=== PATIENT | female | born 1930 | race Caucasian/White ===

== ENCOUNTER 2019-05-21 17:22 | Observation (INO) | payer MEDICARE ==
--- NOTE | 2019-05-21 17:33 | ERPHSYRPT ---
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 Severity: mild Character of Deficits: new weakness, altered sensation, unable to speak Baseline/Normal Cognition: alert oriented x 3 Current Cognition: alert oriented x 3 Baseline Gait: walks w/o assistance Associated Symptoms: numbness/tingling in legs/feet, paresthesia (bilat hands), trouble walking, other (could not speak) Allergies/Adverse Reactions: codeine Allergy (Verified 05/21/19 17:50) Penicillins Allergy (Verified 05/21/19 17:50) Home Medications: Glimepiride 4 mg [Amaryl 4 mg] 4 mg PO BID 05/21/19 [History] Insulin Lispro Protamin/Lispro [Humalog Mix 75-25 Vial] 0 unit SQ BID 05/21/19 [ History] Losartan Potassium [Cozaar] 100 mg PO DAILY 05/21/19 [History] Metformin HCl Xr 500 mg [Glucophage XR 500 MG] 500 mg PO DAILY 05/21/19 [ History] Omeprazole 40 mg PO DAILY 05/21/19 [History] - Review of Systems Constitutional: No Symptoms Eyes: No Symptoms Ears, Nose, & Throat: No Symptoms Respiratory: No Symptoms Cardiac: No Symptoms Abdominal/Gastrointestinal: No Symptoms Genitourinary Symptoms: No Symptoms Musculoskeletal: No Symptoms Skin: No Symptoms Neurological: No Symptoms Psychological: No Symptoms Endocrine: No Symptoms Hematologic/Lymphatic: No Symptoms Immunological/Allergic: No Symptoms All Other Systems: Reviewed and Negative - Past Medical History Pertinent Past Medical History: Yes Cardiac History: No Pertinent History - Past Surgical History Past Surgical History: Yes - Nursing Vital Signs Nursing Vital Signs: Initial Vital Signs Temperature 98.0 F 05/21/19 17:29 Pulse Rate 86 05/21/19 17:29 Blood Pressure 231/83 05/21/19 17:29 O2 Sat by Pulse Oximetry 97 05/21/19 17:29 Pain Scale Pain Intensity 0 - [place] Coma Scale Best Eye Response ([place]): (4) open spontaneously Best Verbal Response ([place]): (5) oriented Best Motor Response ([place]): (6) obeys commands [place] Total: 15 - Physical Exam General Appearance: alert, anxiety Eye Exam: bilateral eye: normal inspection, PERRL, EOMI Ears, Nose, Throat Exam: normal ENT inspection, moist mucous membranes Neck Exam: normal inspection, non-tender, supple, full range of motion Respiratory: normal breath sounds, lungs clear, airway intact, No chest tenderness, No respiratory distress Cardiovascular: regular rate/rhythm, normal heart sounds, normal peripheral pulses Gastrointestinal: soft, normal bowel sounds, No tenderness Pelvic Exam: not done Rectal Exam: not done Back Exam: normal inspection, normal range of motion, No CVA tenderness, No vertebral tenderness Extremity Exam: normal inspection, normal range of motion, pelvis stable Mental Status: alert, oriented x 3, 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 Exam: normal hearing, normal speech, PERRL, tongue midline Coordination/Gait: normal finger to nose, normal gait, normal cerebellar function Motor/Sensory: no motor deficit, no sensory deficit Skin Exam: normal color, warm, dry SpO2 Interpretation: normal O2 Delivery: Room Air - Course Nursing assessment & vital signs reviewed: Yes EKG Interpreted by Me: RATE (85), Sinus Rhythm, Right Rombauer Deviation, 1st degree AV Block, Right Bundle Branch Block, Other (qrs sig prolonged) Ordered Tests: Active Orders 24 hr Category Date Time Status 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 STAT Care 05/21/19 18:05 Active EKG-ER Only STAT Care 05/21/19 18:04 Active IV Insertion STAT Care 05/21/19 18:04 Active NPO (ED) STAT Care 05/21/19 18:04 Active Pulse Oximetry (ED) STAT Care 05/21/19 18:04 Active HEAD WITHOUT CONTRAST [CT] Stat Exams 05/21/19 18:04 Taken CBC W DIFF Stat Lab 05/21/19 17:30 Completed CMP Stat Lab 05/21/19 17:30 Completed PROTIME WITH INR Stat Lab 05/21/19 17:30 Completed UA W/RFX UR CULTURE Stat Lab 05/21/19 19:05 Completed Transfer Order Routine Transfer 05/21/19 Ordered Medication Summary Generic Name Dose Route Start Last Admin Trade Name Freq PRN Reason Stop Dose Admin Sodium Chloride 1,000 mls @ 100 mls/hr 05/21/19 18:15 05/21/19 18:23 Sodium Chloride 0.9% 1000 Ml IV 06/20/19 18:14 100 mls/hr .Q10H [place] Administration Discontinued Medications Generic Name Dose Route Start Last Admin Trade Name Felicity PRN Reason Stop Dose Admin Ciprofloxacin 500 mg 05/21/19 19:26 05/21/19 19:31 Cipro 500 Mg PO 05/21/19 19:27 500 mg STAT ONE Administration Ciprofloxacin Confirm 05/21/19 19:31 Cipro 500 Mg Administered 05/21/19 19:32 Dose 500 mg .ROUTE .STK-MED ONE Enalaprilat 1.25 mg 05/21/19 19:48 05/21/19 20:55 Vasotec I.V. 2.5 Mg IV 05/21/19 19:49 0.625 mg STAT ONE Administration Enalaprilat Confirm 05/21/19 19:59 Vasotec I.V. 2.5 Mg Administered 05/21/19 20:00 Dose 2.5 mg IV .STK-MED ONE Hydralazine HCl 5 mg 05/21/19 18:02 05/21/19 18:08 Apresoline 20 Mg/Ml Inj IV 05/21/19 18:03 5 mg STAT ONE Administration Hydralazine HCl Confirm 05/21/19 18:07 Apresoline 20 Mg/Ml Inj Administered 05/21/19 18:08 Dose 20 mg .ROUTE .STK-MED ONE Hydralazine HCl 5 mg 05/21/19 18:40 05/21/19 18:42 Apresoline 20 Mg/Ml Inj IV 05/21/19 18:41 5 mg STAT ONE Administration Metoprolol Tartrate 5 mg 05/21/19 19:11 05/21/19 19:31 Lopressor 5 Mg/5 Ml Injection IV 05/21/19 19:12 5 mg STAT ONE Administration Metoprolol Tartrate Confirm 05/21/19 19:19 Lopressor 5 Mg/5 Ml Injection Administered 05/21/19 19:20 Dose 5 mg IV .STK-MED ONE Lab/Rad Data: Laboratory Result Diagrams 05/21/19 17:30 05/21/19 17:30 Laboratory Results 05/21/19 05/21/19 05/21/19 Range/Units 19:05 17:30 17:30 WBC (4.0-10.5) K/mm3 RBC (4.1-5.4) M/mm3 Hgb (12.0-16.0) gm/dl Hct (35-47) % MCV (78-100) fl MCH (26-32) pg MCHC (32-36) g/dl RDW (11.5-14.0) % Plt Count (150-450) K/mm3 MPV (7.5-11.0) fl Gran % (36.0-66.0) % Eos # (Auto) (0-0.5) Absolute Lymphs (auto) (1.0-4.6) Absolute Monos (auto) (0.0-1.3) Lymphocytes % (24.0-44.0) % Monocytes % (0.0-12.0) % Eosinophils % (0.00-5.0) % Basophils % (0.0-0.4) % Absolute Granulocytes (1.4-6.9) Basophils # (0-0.4) PT 11.9 (9.95-12.35) SECONDS INR 1.05 (0.8-3.0) Sodium 137 (137-145) mmol/L Potassium 4.8 (3.5-5.1) mmol/L Chloride 102 (98-107) mmol/L Carbon Dioxide 24 (22-30) mmol/L Anion Gap 16.4 H (5-15) MEQ/L BUN 24 H (7-17) mg/dL Creatinine 1.14 H (0.52-1.04) mg/dL Estimated GFR 47.7 ML/MIN Glucose 154 H (74-106) mg/dL Calcium 10.4 H (8.4-10.2) mg/dL Total Bilirubin 0.50 (0.2-1.3) mg/dL AST 30 (14-36) U/L ALT 29 (0-35) U/L Alkaline Phosphatase 53 (38-126) U/L Serum Total Protein 8.1 (6.3-8.2) g/dL Albumin 4.4 (3.5-5.0) g/dL Urine Color YELLOW (YELLOW) Urine Appearance SLIGHTLY CLOUDY (CLEAR) Urine pH 6.0 (5-6) Ur Specific [place] 1.005 (1.005-1.025) Urine Protein NEGATIVE (Negative) Urine Ketones NEGATIVE (NEGATIVE) Urine Blood NEGATIVE (0-5) Juliano/ul Urine Nitrite NEGATIVE (NEGATIVE) Urine Bilirubin NEGATIVE (NEGATIVE) Urine Urobilinogen NEGATIVE (0-1) mg/dL Ur Leukocyte Esterase TRACE (NEGATIVE) Urine WBC (Auto) 3-5 (0-5) /HPF Urine RBC (Auto) NONE (0-2) /HPF U Epithel Cells (Auto) NONE (FEW) /HPF Urine Bacteria (Auto) NONE (NEGATIVE) /HPF Urine Mucus (Auto) SLIGHT (NEGATIVE) /HPF Urine Culture Reflexed NO (NO) Urine Glucose NEGATIVE (NEGATIVE) mg/dL 05/21/19 Range/Units 17:30 WBC 8.1 (4.0-10.5) K/mm3 RBC 4.29 (4.1-5.4) M/mm3 Hgb 13.5 (12.0-16.0) gm/dl Hct 41.5 (35-47) % MCV 96.7 (78-100) fl MCH 31.5 (26-32) pg MCHC 32.5 (32-36) g/dl RDW 14.7 H (11.5-14.0) % Plt Count 238 (150-450) K/mm3 MPV 11.1 H (7.5-11.0) fl Gran % 57.1 (36.0-66.0) % Eos # (Auto) 0.26 (0-0.5) Absolute Lymphs (auto) 2.35 (1.0-4.6) Absolute Monos (auto) 0.86 (0.0-1.3) Lymphocytes % 28.9 (24.0-44.0) % Monocytes % 10.6 (0.0-12.0) % Eosinophils % 3.2 (0.00-5.0) % Basophils % 0.2 (0.0-0.4) % Absolute Granulocytes 4.65 (1.4-6.9) Basophils # 0.02 (0-0.4) PT (9.95-12.35) SECONDS INR (0.8-3.0) Sodium (137-145) mmol/L Potassium (3.5-5.1) mmol/L Chloride (98-107) mmol/L Carbon Dioxide (22-30) mmol/L Anion Gap (5-15) MEQ/L BUN (7-17) mg/dL Creatinine (0.52-1.04) mg/dL Estimated GFR ML/MIN Glucose (74-106) mg/dL Calcium (8.4-10.2) mg/dL Total Bilirubin (0.2-1.3) mg/dL AST (14-36) U/L ALT (0-35) U/L Alkaline Phosphatase (38-126) U/L Serum Total Protein (6.3-8.2) g/dL Albumin (3.5-5.0) g/dL Urine Color (YELLOW) Urine Appearance (CLEAR) Urine pH (5-6) Ur Specific [place] (1.005-1.025) Urine Protein (Negative) Urine Ketones (NEGATIVE) Urine Blood (0-5) Juliano/ul Urine Nitrite (NEGATIVE) Urine Bilirubin (NEGATIVE) Urine Urobilinogen (0-1) mg/dL Ur Leukocyte Esterase (NEGATIVE) Urine WBC (Auto) (0-5) /HPF Urine RBC (Auto) (0-2) /HPF U Epithel Cells (Auto) (FEW) /HPF Urine Bacteria (Auto) (NEGATIVE) /HPF Urine Mucus (Auto) (NEGATIVE) /HPF Urine Culture Reflexed (NO) Urine Glucose (NEGATIVE) mg/dL - Progress Progress: improved Progress Note: 05/21/19 19:10 ct head-senile brain. no acute intracranial abnormality 05/21/19 21:[address] mosqueda. i reviewed pts hx, labs, ekg, xray results. he accepts pt for admission Counseled pt/family regarding: lab results, diagnosis, need for follow-up, rad results - Departure Departure Disposition: In-patient Admission Clinical Impression: UTI (urinary tract infection), Hypertensive crisis Condition: Stable Critical Care Time: Yes Critical Care Time(excluding separately billable procedures): Critical 75-104 mins Referrals: JEAN PAUL BOLANOS [Primary Care Provider] - Additional Instructions: take your medications as prescribed. follow up with primary doctor tomorrow for further management Prescriptions: Ciprofloxacin [Cipro 500 MG] 500 mg PO BID #14 tablet
[2019-05-21] MEDS ORDERED: APRESOLINE 20 MG/ML INJ IV ONE ×2 (18:02→18:40)
[2019-05-21] MEDS ORDERED: APRESOLINE 20 MG/ML INJ ONE (18:07)
[2019-05-21 18:12] LABS: Absolute Neutrophil Ct (ANC) 4.65 (1.4-6.9); BASOPHIL % 0.2 % (0.0-0.4); Basophil (Absolute #) 0.02 (0-0.4); Eosinophil % 3.2 % (0.00-5.0); Eosinophil (Absolute #) 0.26 (0-0.5); Hematocrit 41.5 % (35-47); Hemoglobin 13.5 gm/dl (12.0-16.0); Lymphocyte (Absolute #) 2.35 (1.0-4.6); Lymphocytes % 28.9 % (24.0-44.0); Mean Cell Volume 96.7 fl (78-100); Mean Corpuscular Hemoglobin 31.5 pg (26-32); Mean Corpuscular Hgb Concent. 32.5 g/dl (32-36); Mean Platelet Volume 11.1 fl (7.5-11.0); Monocyte (Absolute #) 0.86 (0.0-1.3); Monocytes % 10.6 % (0.0-12.0); Neutrophil % 57.1 % (36.0-66.0); Platelet Count 238 K/mm3 (150-450); Red Blood Count 4.29 M/mm3 (4.1-5.4); Red Cell Distribution Width 14.7 % (11.5-14.0); White Blood Count 8.1 K/mm3 (4.0-10.5)
[2019-05-21 18:14] LABS: INR 1.05 (0.8-3.0); PROTIME 11.9 SECONDS (9.95-12.35)
[2019-05-21] MEDS ORDERED: Sodium Chloride 0.9% 1000 ML 1,000 ML IV SCH (18:15)
[2019-05-21 18:17] LABS: ALBUMIN 4.4 g/dL (3.5-5.0); ANION GAP 16.4 MEQ/L (5-15); BILIRUBIN,TOTAL 0.5 mg/dL (0.2-1.3); Calcium 10.4 mg/dL (8.4-10.2); Creatinine 1 1.14 mg/dL (0.52-1.04); Potassium 4.8 mmol/L (3.5-5.1); Total Protein 8.1 g/dL (6.3-8.2)
[2019-05-21] MEDS ORDERED: LOPRESSOR 5 MG/5 ML INJECTION IV ONE ×2 (19:11→19:19)
[2019-05-21 19:12] LABS: Appearance SLIGHTLY CLOUDY (CLEAR); Bilirubin NEGATIVE (NEGATIVE); Blood NEGATIVE Ery/ul (0-5); Glucose NEGATIVE (NEGATIVE); Ketones NEGATIVE (NEGATIVE); Leukocyte Esterase TRACE (NEGATIVE); Mucus SLIGHT /HPF (NEGATIVE); Nitrite NEGATIVE (NEGATIVE); Protein,Urine Dip NEGATIVE (Negative); Specific Gravity 1.005 (1.005-1.025); Urobilinogen NEGATIVE mg/dL (0-1)
[2019-05-21] MEDS ORDERED: Cipro 500 MG PO ONE (19:26)
[2019-05-21] MEDS ORDERED: Cipro 500 MG ONE (19:31)
[2019-05-21] MEDS ORDERED: VASOTEC I.V. 2.5 MG IV ONE (19:59)
[2019-05-21] MEDS: VASOTEC I.V. 2.5 MG IV ONE ×2 (20:10→20:55)
[2019-05-21] MEDS ORDERED: TYLENOL 325 MG PO PRN (22:11)
[2019-05-21] MEDS ORDERED: TRANDATE 100 MG/20 ML MDV FOR DRIP IV PRN (22:11)
[2019-05-21] MEDS ORDERED: Levofloxacin 500 MG Tablet PO ONE (22:11)
[2019-05-21] MEDS ORDERED: Zofran 4 MG/2 ML VIAL IV PRN (22:11)
[2019-05-21] MEDS ORDERED: Tessalon Perles 100 MG PO ONE (23:01)
[2019-05-21] MEDS ORDERED: solu-MEDROL 125 MG ONE (23:01)
[2019-05-22 05:26] LABS: Absolute Neutrophil Ct (ANC) 4.43 (1.4-6.9); BASOPHIL % 0.3 % (0.0-0.4); Basophil (Absolute #) 0.02 (0-0.4); Eosinophil % 2.9 % (0.00-5.0); Eosinophil (Absolute #) 0.23 (0-0.5); Hematocrit 40.4 % (35-47); Lymphocyte (Absolute #) 2.35 (1.0-4.6); Lymphocytes % 29.8 % (24.0-44.0); Mean Cell Volume 95.7 fl (78-100); Mean Corpuscular Hemoglobin 30.8 pg (26-32); Mean Corpuscular Hgb Concent. 32.2 g/dl (32-36); Mean Platelet Volume 11.3 fl (7.5-11.0); Monocyte (Absolute #) 0.86 (0.0-1.3); Monocytes % 10.9 % (0.0-12.0); Neutrophil % 56.1 % (36.0-66.0); Platelet Count 226 K/mm3 (150-450); Red Blood Count 4.22 M/mm3 (4.1-5.4); Red Cell Distribution Width 14.8 % (11.5-14.0); White Blood Count 7.9 K/mm3 (4.0-10.5)
[2019-05-22 05:41] LABS: ALBUMIN 3.8 g/dL (3.5-5.0); ANION GAP 11.6 MEQ/L (5-15); BILIRUBIN,TOTAL 0.4 mg/dL (0.2-1.3); Calcium 9.8 mg/dL (8.4-10.2); Creatinine 1 1.01 mg/dL (0.52-1.04); Potassium 4.5 mmol/L (3.5-5.1)
--- NOTE | 2019-05-22 08:34 | XRAY ---
Indication: Headache, confusion, and difficulty speaking. Multiple contiguous axial images obtained through the head without contrast. Comparison: None Age-appropriate global atrophy and mild periventricular degenerative micro-ischemia bilaterally. No acute intracranial hemorrhage, abnormal extra-axial fluid collection, or mass effect. Fourth ventricle is midline without hydrocephalus. Bony calvarium intact. Visualized paranasal sinuses and mastoid air cells are clear. Impression: Nonacute senile brain.
[2019-05-22] MEDS: TRANDATE 100MG/20 ML MDV IV PRN ×3 (09:06→20:14)
[2019-05-22] MEDS: NovoLOG Insulin SQ PRN ×2 (09:07→12:29)
--- NOTE | 2019-05-22 14:11 | PCM.HP ---
History of Present Illness - Chief Complaint Chief Complaint: weakness and elevated blood pressure for 2-3 days History of Present Illness: is a 89 year old female came to ER with c/o weakness and elevated blood pressure for 2-3 days c - Review of Systems Constitutional: No Fever, No Chills Eyes: No Symptoms Ears, Nose, & Throat: No Symptoms Respiratory: No Cough, No Short Of Breath Cardiac: No Chest Pain, No Edema, No Syncope Abdominal/Gastrointestinal: No Abdominal Pain, No Nausea, No Vomiting, No Diarrhea Genitourinary Symptoms: No Dysuria Musculoskeletal: No Back Pain, No Neck Pain Skin: No Rash Neurological: No Dizziness, No Focal Weakness, No Sensory Changes Psychological: No Symptoms Endocrine: No Symptoms Hematologic/Lymphatic: No Symptoms Immunological/Allergic: No Symptoms Medications & Allergies Home Medications: Home Medication List Ascorbic Acid 500 mg [Vitamin C 500 MG] 500 mg PO DAILY 05/21/19 [History Confirmed 05/21/19] B2/Vits A,C,E/Lut/Zeaxanth/Min [Icaps Tablet] 1 each PO DAILY 05/21/19 [History Confirmed 05/21/19] Ferrous Sulfate [Iron] 325 mg PO DAILY 05/21/19 [History Confirmed 05/21/19] Glimepiride 4 mg [Amaryl 4 mg] 4 mg PO QHS 05/21/19 [History Confirmed ] Insulin Lispro Protamin/Lispro [Humalog Mix 75-25 Vial] 0 unit SQ BID 05/21/19 [ History Confirmed 05/21/19] Losartan Potassium [Cozaar] 100 mg PO DAILY 05/21/19 [History Confirmed 05/21/19 ] Metformin HCl Xr 500 mg [Glucophage XR 500 MG] 500 mg PO DAILY 05/21/19 [ History Confirmed 05/21/19] Omeprazole 40 mg PO HS 05/21/19 [History Confirmed 05/21/19] Vitamin B Complex/Minerals [Stress B with Zinc Tablet] 1 each PO DAILY 05/21/19 [History Confirmed 05/21/19] Metoprolol Tartrate 50 mg [Lopressor 50 MG] 50 mg PO BID #60 tablet [Rx] Allergies/Adverse Reactions: Allergies Allergy/AdvReac Type Severity Reaction Status Date / Time codeine Allergy Verified 05/21/19 17:50 Penicillins Allergy Verified 05/21/19 17:50 - Past Medical History Past Medical History: Yes Neurological History: TIA ENT History: Other Cardiac History: No Pertinent History Respiratory History: No Pertinent History Endocrine Medical History: Diabetes Type II Musculoskelatal History: No Pertinent History GI Medical History: GERD History: No Pertinent History Pyscho-Social History: No Pertinent History Reproductive Disorders: No Pertinent History Comment: Diabetic retinopathy - Female History Are you now?: No - Past Surgical History Past Surgical History: Yes Neuro Surgical History: No Pertinent History Cardiac History: No Pertinent History Respiratory Surgery: No Pertinent History GI Surgical History: Appendectomy Genitourinary Surgical Hx: No Pertinent History Musculskeletal Surgical Hx: No Pertinent History Female Surgical History: No Pertinent History - Social History Smoking Status: Never smoker Exposure to second hand smoke: No Alcohol: None Drug Use: none - Physical Exam Vital Signs: Vital Signs - 24 hr Temp Pulse Resp BP BP Pulse Ox 05/22/19 12:35 98.5 F 78 18 149/56 97 05/22/19 11:00 98.0 F 81 18 183/65 178/93 97 05/22/19 09:00 98.0 F 81 18 183/65 97 05/22/19 08:00 79 05/22/19 07:08 96 05/22/19 07:00 98.1 F 81 18 183/65 97 05/22/19 05:42 98.3 F 83 18 173/72 97 05/22/19 04:00 82 05/22/19 03:31 98.3 F 83 18 167/72 178/93 99 05/22/19 02:00 97.9 F 88 18 164/70 96 05/22/19 00:21 86 158/83 05/21/19 23:54 97.8 F 88 15 181/98 05/21/19 22:19 97.8 F 88 15 189/94 05/21/19 21:30 88 16 178/93 96 05/21/19 21:07 88 16 190/83 95 05/21/19 20:08 84 16 189/84 98 05/21/19 19:57 81 18 205/84 97 05/21/19 19:18 98 H 18 208/84 97 05/21/19 18:08 96 05/21/19 18:00 84 195/127 97 05/21/19 17:29 98.0 F 86 231/83 97 General Appearance: no apparent distress, alert Neurologic Exam: alert, oriented x 3, cooperative, normal mood/affect, nml cerebellar function, nml station & gait, sensation nml, No motor deficits Eye Exam: PERRL/EOMI, eyes nml inspection Ears, Nose, Throat Exam: normal ENT inspection, TMs normal, pharynx normal, moist mucous membranes Neck Exam: normal inspection, non-tender, supple, full range of motion Respiratory Exam: normal breath sounds, lungs clear, No respiratory distress Cardiovascular Exam: regular rate/rhythm, normal heart sounds, normal peripheral pulses Gastrointestinal/Abdomen Exam: soft, normal bowel sounds, No tenderness, No mass Back Exam: normal inspection, normal range of motion, No CVA tenderness, No vertebral tenderness Extremity Exam: normal inspection, normal range of motion, pelvis stable Skin Exam: normal color, warm, dry, No rash Lymphatic Exam: No adenopathy Results - Labs Lab/Micro Results: Lab Results-Last 24 Hours 05/21/19 05/21/19 05/21/19 Range/Units 17:30 17:30 17:30 WBC 8.1 (4.0-10.5) K/mm3 RBC 4.29 (4.1-5.4) M/mm3 Hgb 13.5 (12.0-16.0) gm/dl Hct 41.5 (35-47) % MCV 96.7 (78-100) fl MCH 31.5 (26-32) pg MCHC 32.5 (32-36) g/dl RDW 14.7 H (11.5-14.0) % Plt Count 238 (150-450) K/mm3 MPV 11.1 H (7.5-11.0) fl Gran % 57.1 (36.0-66.0) % Eos # (Auto) 0.26 (0-0.5) Absolute Lymphs (auto) 2.35 (1.0-4.6) Absolute Monos (auto) 0.86 (0.0-1.3) Lymphocytes % 28.9 (24.0-44.0) % Monocytes % 10.6 (0.0-12.0) % Eosinophils % 3.2 (0.00-5.0) % Basophils % 0.2 (0.0-0.4) % Absolute Granulocytes 4.65 (1.4-6.9) Basophils # 0.02 (0-0.4) PT 11.9 (9.95-12.35) SECONDS INR 1.05 (0.8-3.0) Sodium 137 (137-145) mmol/L Potassium 4.8 (3.5-5.1) mmol/L Chloride 102 (98-107) mmol/L Carbon Dioxide 24 (22-30) mmol/L Anion Gap 16.4 H (5-15) MEQ/L BUN 24 H (7-17) mg/dL Creatinine 1.14 H (0.52-1.04) mg/dL Estimated GFR 47.7 ML/MIN Glucose 154 H (74-106) mg/dL Calcium 10.4 H (8.4-10.2) mg/dL Total Bilirubin 0.50 (0.2-1.3) mg/dL AST 30 (14-36) U/L ALT 29 (0-35) U/L Alkaline Phosphatase 53 (38-126) U/L Serum Total Protein 8.1 (6.3-8.2) g/dL Albumin 4.4 (3.5-5.0) g/dL Urine Color (YELLOW) Urine Appearance (CLEAR) Urine pH (5-6) Ur Specific [place] (1.005-1.025) Urine Protein (Negative) Urine Ketones (NEGATIVE) Urine Blood (0-5) Juliano/ul Urine Nitrite (NEGATIVE) Urine Bilirubin (NEGATIVE) Urine Urobilinogen (0-1) mg/dL Ur Leukocyte Esterase (NEGATIVE) Urine WBC (Auto) (0-5) /HPF Urine RBC (Auto) (0-2) /HPF U Epithel Cells (Auto) (FEW) /HPF Urine Bacteria (Auto) (NEGATIVE) /HPF Urine Mucus (Auto) (NEGATIVE) /HPF Urine Culture Reflexed (NO) Urine Glucose (NEGATIVE) mg/dL 05/21/19 05/22/19 05/22/19 Range/Units 19:05 05:24 05:24 WBC 7.9 (4.0-10.5) K/mm3 RBC 4.22 (4.1-5.4) M/mm3 Hgb 13.0 (12.0-16.0) gm/dl Hct 40.4 (35-47) % MCV 95.7 (78-100) fl MCH 30.8 (26-32) pg MCHC 32.2 (32-36) g/dl RDW 14.8 H (11.5-14.0) % Plt Count 226 (150-450) K/mm3 MPV 11.3 H (7.5-11.0) fl Gran % 56.1 (36.0-66.0) % Eos # (Auto) 0.23 (0-0.5) Absolute Lymphs (auto) 2.35 (1.0-4.6) Absolute Monos (auto) 0.86 (0.0-1.3) Lymphocytes % 29.8 (24.0-44.0) % Monocytes % 10.9 (0.0-12.0) % Eosinophils % 2.9 (0.00-5.0) % Basophils % 0.3 (0.0-0.4) % Absolute Granulocytes 4.43 (1.4-6.9) Basophils # 0.02 (0-0.4) PT (9.95-12.35) SECONDS INR (0.8-3.0) Sodium 138 (137-145) mmol/L Potassium 4.5 (3.5-5.1) mmol/L Chloride 106 (98-107) mmol/L Carbon Dioxide 24 (22-30) mmol/L Anion Gap 11.6 (5-15) MEQ/L BUN 22 H (7-17) mg/dL Creatinine 1.01 (0.52-1.04) mg/dL Estimated GFR 54.9 ML/MIN Glucose 154 H (74-106) mg/dL Calcium 9.8 (8.4-10.2) mg/dL Total Bilirubin 0.40 (0.2-1.3) mg/dL AST 25 (14-36) U/L ALT 24 (0-35) U/L Alkaline Phosphatase 46 (38-126) U/L Serum Total Protein 7.0 (6.3-8.2) g/dL Albumin 3.8 (3.5-5.0) g/dL Urine Color YELLOW (YELLOW) Urine Appearance SLIGHTLY CLOUDY (CLEAR) Urine pH 6.0 (5-6) Ur Specific [place] 1.005 (1.005-1.025) Urine Protein NEGATIVE (Negative) Urine Ketones NEGATIVE (NEGATIVE) Urine Blood NEGATIVE (0-5) Juliano/ul Urine Nitrite NEGATIVE (NEGATIVE) Urine Bilirubin NEGATIVE (NEGATIVE) Urine Urobilinogen NEGATIVE (0-1) mg/dL Ur Leukocyte Esterase TRACE (NEGATIVE) Urine WBC (Auto) 3-5 (0-5) /HPF Urine RBC (Auto) NONE (0-2) /HPF U Epithel Cells (Auto) NONE (FEW) /HPF Urine Bacteria (Auto) NONE (NEGATIVE) /HPF Urine Mucus (Auto) SLIGHT (NEGATIVE) /HPF Urine Culture Reflexed NO (NO) Urine Glucose NEGATIVE (NEGATIVE) mg/dL - Radiology Impressions Radiology Exams & Impressions: Radiology Procedures Category Date Time Status HEAD WITHOUT CONTRAST [CT] Stat Exams 05/21/19 18:04 Completed Assessment/Plan (1) Hypertensive crisis Status: Acute Assessment & Plan: Chief Complaint Diagnosis Hypertension CRISIS Allergies Allergy/AdvReac Type Severity Reaction Status Date / Time codeine Allergy Verified 05/21/19 17:50 Penicillins Allergy Verified 05/21/19 17:50 Home Medications Medication Instructions Recorded Confirmed Last Taken Type Ascorbic Acid 500 mg [Vitamin C 500 mg PO DAILY 05/21/19 05/21/19 05/21/19 08 :00 History 500 MG] B2/Vits A,C,E/Lut/Zeaxanth/Min 1 each PO DAILY 05/21/19 05/21/19 05/21/19 08:00 History [Icaps Tablet] Ferrous Sulfate [Iron] 325 mg PO DAILY 05/21/19 05/21/19 05/21/19 08:00 History Glimepiride 4 mg [Amaryl 4 4 mg PO QHS 05/21/19 05/21/19 05/21/19 History mg] Insulin Lispro Protamin/Lispro 0 unit SQ BID 05/21/19 05/21/19 05/21/19 History [Humalog Mix 75-25 Vial] Losartan Potassium [Cozaar] 100 mg PO DAILY 05/21/19 05/21/19 05/21/19 History Metformin HCl Xr 500 mg 500 mg PO DAILY 05/21/19 05/21/19 05/21/19 History [Glucophage XR 500 MG] Omeprazole 40 mg PO HS 05/21/19 05/21/19 05/21/19 History Vitamin B Complex/Minerals [Stress 1 each PO DAILY 05/21/19 05/21/19 05/21/19 History B with Zinc Tablet] Metoprolol Tartrate 50 mg 50 mg PO BID #60 tablet 05/23/19 Unknown Rx [Lopressor 50 MG] Current Medications Discontinued Medications Generic Name Dose Route Start Last Admin Trade Name Freq PRN Reason Stop Dose Admin Acetaminophen 650 mg 05/21/19 22:11 05/23/19 07:46 Tylenol 325 Mg PO 06/20/19 22:10 650 mg Q4H PRN PRN Administration PAIN, FEVER, HEADACHE Ascorbic Acid 500 mg 05/22/19 15:00 05/23/19 07:45 Vitamin C 500 Mg PO 06/21/19 14:59 500 mg DAILY RAVEN Administration Ciprofloxacin 500 mg 05/21/19 19:26 05/21/19 19:31 Cipro 500 Mg PO 05/21/19 19:27 500 mg STAT ONE Administration Ciprofloxacin Confirm 05/21/19 19:31 Cipro 500 Mg Administered 05/21/19 19:32 Dose 500 mg .ROUTE .STK-MED ONE Enalaprilat 1.25 mg 05/21/19 19:48 05/21/19 20:55 Vasotec I.V. 2.5 Mg IV 05/21/19 19:49 0.625 mg STAT ONE Administration Enalaprilat Confirm 05/21/19 19:59 Vasotec I.V. 2.5 Mg Administered 05/21/19 20:00 Dose 2.5 mg IV .STK-MED ONE Ferrous Sulfate 325 mg 05/22/19 15:00 05/23/19 07:46 Feosol 325 Mg PO 06/21/19 14:59 325 mg DAILY RAVEN Administration Glimepiride 4 mg 05/22/19 22:00 05/22/19 21:08 Amaryl 4 Mg PO 06/21/19 21:59 4 mg QHS RAVEN Administration Hydralazine HCl 5 mg 05/21/19 18:02 05/21/19 18:08 Apresoline 20 Mg/Ml Inj IV 05/21/19 18:03 5 mg STAT ONE Administration Hydralazine HCl Confirm 05/21/19 18:07 Apresoline 20 Mg/Ml Inj Administered 05/21/19 18:08 Dose 20 mg .ROUTE .STK-MED ONE Hydralazine HCl 5 mg 05/21/19 18:40 05/21/19 18:42 Apresoline 20 Mg/Ml Inj IV 05/21/19 18:41 5 mg STAT ONE Administration Sodium Chloride 1,000 mls @ 100 mls/hr 05/21/19 18:15 05/21/19 18:23 Sodium Chloride 0.9% 1000 Ml IV 06/20/19 18:14 100 mls/hr .Q10H RAVEN Administration Insulin Aspart 0 unit 05/22/19 00:19 05/23/19 17:03 Novolog Insulin SQ 06/21/19 00:18 3 unit UD PRN Administration HYPERGLYCEMIA Insulin Lispro Protam/Lispro Human 28 unit 05/23/19 08:00 05/23/19 07:47 Humalog Mix 75-25 Vial SQ 06/22/19 07:59 28 units AMINSULIN RAVEN Administration Insulin Lispro Protam/Lispro Human 8 unit 05/22/19 17:00 05/23/19 16:54 Humalog Mix 75-25 Vial SQ 06/21/19 16:59 8 units DINNER RAVEN Administration Labetalol HCl 20 mg 05/21/19 22:11 Trandate 100 Mg/20 Ml Mdv For Drip IV 06/20/19 22:10 Q4H PRN PRN HYPERTENSION Labetalol HCl 20 mg 05/22/19 08:36 05/23/19 07:43 Trandate 100mg/20 Ml Mdv IV 06/21/19 08:35 20 mg Q4H PRN PRN Administration HYPERTENSION Levofloxacin 500 mg 05/21/19 22:11 05/22/19 00:37 Levofloxacin 500 Mg Tablet PO 05/21/19 22:12 Not Given STAT ONE Losartan Potassium 100 mg 05/22/19 15:00 05/23/19 07:45 Cozaar 50 Mg PO 06/21/19 14:59 100 mg DAILY RAVEN Administration Metformin HCl 500 mg 05/22/19 15:00 05/23/19 07:46 Glucophage Xr 500 Mg PO 06/21/19 14:59 500 mg DAILY RAVEN Administration Metoprolol Tartrate 5 mg 05/21/19 19:11 05/21/19 19:31 Lopressor 5 Mg/5 Ml Injection IV 05/21/19 19:12 5 mg STAT ONE Administration Metoprolol Tartrate Confirm 05/21/19 19:19 Lopressor 5 Mg/5 Ml Injection Administered 05/21/19 19:20 Dose 5 mg IV .STK-MED ONE Metoprolol Tartrate 25 mg 05/22/19 15:00 05/23/19 07:46 Lopressor 25mg Tab PO 06/21/19 14:59 25 mg BID RAVEN Administration Metoprolol Tartrate 25 mg 05/23/19 09:30 05/23/19 09:29 Lopressor 25mg Tab PO 05/23/19 09:31 25 mg 1XONLY ONE Administration Metoprolol Tartrate 50 mg 05/23/19 10:00 05/23/19 10:05 Lopressor 50 Mg PO 06/22/19 09:59 Not Given BID RAVEN Multivitamins 1 tab 05/22/19 15:00 05/23/19 07:46 Nora-Bee With C PO 06/21/19 14:59 1 tab DAILY RAVEN Administration Multivitamins/Minerals 1 tab 05/22/19 15:00 05/23/19 07:46 Ocuvite Tablet PO 06/21/19 14:59 1 tab DAILY RAVEN Administration Ondansetron HCl 4 mg 05/21/19 22:11 Zofran 4 Mg/2 Ml Vial IV 06/20/19 22:10 Q6H PRN PRN NAUSEA/VOMITING Pantoprazole Sodium 40 mg 05/22/19 22:00 05/22/19 21:08 Protonix 40mg Tablet PO 06/21/19 21:59 40 mg HS RVAEN Administration Intake & Output (Last 24 hours) 05/22/19 05/23/19 05/24/19 05/25/19 11:59 11:59 11:59 11:59 Intake Total 840 480 780 Output Total 200 1250 300 Balance 640 -770 480 Weight 72.5 kg 73.9 kg 73.9 kg Patient Care Notes (Last 24 hours) 05/24/19 08:44 Case Management Note by Anupama Estevez AT [facility] NOTIFIED OF DC TO HOME 05/23/19- SHE STATED THEY WOULD CALL US IF THEY HAD NOT RECEIVED THE DC INSTRUCTIONS AND MED LIST Initialized on 05/24/19 08:44 - END OF NOTE Code(s): I16.9 - HYPERTENSIVE CRISIS, UNSPECIFIED (2) UTI (urinary tract infection) Status: Acute Qualifiers: Urinary tract infection type: acute cystitis Hematuria presence: without hematuria Qualified Code(s): N30.00 - Acute cystitis without hematuria Assessment & Plan: Last Vital Signs Temp 97.4 F 05/23/19 17:00 Pulse 69 05/23/19 17:00 Resp 18 05/23/19 17:00 BP 147/64 05/23/19 17:00 Pulse Ox 96 05/23/19 17:00 Allergies codeine Allergy (Verified 05/21/19 17:50) Penicillins Allergy (Verified 05/21/19 17:50) Intake & Output 05/24/19 05/25/19 11:59 11:59 Intake Total 780 Output Total 300 Balance 480 Weight 73.9 kg Code(s): N39.0 - URINARY TRACT INFECTION, SITE NOT SPECIFIED
[2019-05-22] MEDS: Glucophage XR 500 MG PO SCH (14:51)
[2019-05-22] MEDS: Vitamin C 500 MG PO SCH (14:52)
[2019-05-22] MEDS: FEOSOL 325 MG PO SCH (14:52)
[2019-05-22] MEDS: Cozaar 50 MG PO SCH (14:52)
[2019-05-22] MEDS: VITA-BEE WITH C PO SCH (14:52)
[2019-05-22] MEDS: Ocuvite Tablet PO SCH (15:54)
[2019-05-22] MEDS: Lopressor 25MG Tab PO SCH ×2 (15:54→21:08)
[2019-05-22] MEDS: HUMALOG MIX 75-25 VIAL SQ SCH (17:16)
[2019-05-22] MEDS ORDERED: AMARYL 4 MG PO SCH (22:00)
[2019-05-22] MEDS ORDERED: Protonix 40MG Tablet PO SCH (22:00)
[2019-05-23] MEDS: TRANDATE 100MG/20 ML MDV IV PRN ×2 (02:16→07:43)
[2019-05-23] MEDS: Cozaar 50 MG PO SCH (07:45)
[2019-05-23] MEDS: Vitamin C 500 MG PO SCH (07:45)
[2019-05-23] MEDS: VITA-BEE WITH C PO SCH (07:46)
[2019-05-23] MEDS: FEOSOL 325 MG PO SCH (07:46)
[2019-05-23] MEDS: Ocuvite Tablet PO SCH (07:46)
[2019-05-23] MEDS: Lopressor 25MG Tab PO SCH (07:46)
[2019-05-23] MEDS: Glucophage XR 500 MG PO SCH (07:46)
[2019-05-23] MEDS ORDERED: HUMALOG MIX 75-25 VIAL SQ SCH (08:00)
[2019-05-23] MEDS ORDERED: Lopressor 25MG Tab PO ONE (09:30)
[2019-05-23] MEDS ORDERED: Lopressor 50 MG PO SCH (10:00)
[2019-05-23] MEDS ORDERED: [UNRECOGNIZED DRUG - OTHER] PO SCH (10:00)
[2019-05-23] MEDS ORDERED: MINERALS PO SCH (10:00)
[2019-05-23] MEDS ORDERED: VITAMIN B COMPLEX PO SCH (10:00)
[2019-05-23] MEDS ORDERED: NON-FORMULARY ITEM (Losartan Potassium [Cozaar] 100 MG) PO SCH (10:00)
[2019-05-23] MEDS ORDERED: NON-FORMULARY ITEM (B2/Vits A,C,E/Lut/Zeaxanth/Min [Icaps Tablet] 1 EACH) PO SCH (10:00)
[2019-05-23] MEDS: NovoLOG Insulin SQ PRN ×2 (12:46→17:03)
[2019-05-23] MEDS: HUMALOG MIX 75-25 VIAL SQ SCH (16:54)
--- NOTE | 2019-05-23 17:22 | PCM.DS ---
Discharge Summary Date of Admission: 05/21/19 22:04 Admitting Physician: JOSEPH GALICIA Primary Care Provider: JEAN PAUL BOLANOS Allergies Allergies codeine Allergy (Verified 05/21/19 17:50) Penicillins Allergy (Verified 05/21/19 17:50) Hospital Summary - Vitals & Intake/Output Vital Signs: Vital Signs Temperature 97.1 F 05/23/19 12:06 Pulse Rate 83 05/23/19 12:06 Respiratory Rate 05/23/19 12:06 Blood Pressure 144/63 05/23/19 12:06 O2 Sat by Pulse Oximetry 97 05/23/19 12:06 Intake & Output: Intake & Output 05/21/19 05/22/19 05/23/19 05/24/19 11:59 11:59 11:59 11:59 Intake Total 840 480 240 Output Total 200 1250 Balance 640 -770 240 Weight 72.5 kg 73.9 kg 73.9 kg - Lab Result Diagrams: 05/22/19 05:24 05/22/19 05:24 Lab Results-Last 24 Hrs: Accuchecks Date 05/23/19 Date 05/23/19 Date 05/22/19 Time 11:30 Time 07:30 Time 21:30 Accucheck Value: 259 Accucheck Value: 264 Accucheck Value: 176 Micro Results-Entire Visit: Accuchecks Date 05/23/19 Date 05/23/19 Date 05/22/19 Time 11:30 Time 07:30 Time 21:30 Accucheck Value: 259 Accucheck Value: 264 Accucheck Value: 176 - Radiology Exams Ordered Rad Exams-Entire Visit: Radiology Procedures Category Date Time Status HEAD WITHOUT CONTRAST [CT] Stat Exams 05/21/19 18:04 Completed - Procedures and Test Procedures and Tests throughout Hospitalization: Therapy Orders & Screens 05/23/19 11:25 PT Eval & Treat ( Order) ROUTINE Reason for Eval:: WEAKNESS Diagnosis: Hypertension CRISIS - Discharge Disposition: Home, Self-Care Condition: Stable Prescriptions: New Metoprolol Tartrate 50 mg [Lopressor 50 MG] 50 mg PO BID #60 tablet Continue Omeprazole 40 mg PO HS Metformin HCl Xr 500 mg [Glucophage XR 500 MG] 500 mg PO DAILY Glimepiride 4 mg [Amaryl 4 mg] 4 mg PO QHS Insulin Lispro Protamin/Lispro [Humalog Mix 75-25 Vial] 0 unit SQ BID Losartan Potassium [Cozaar] 100 mg PO DAILY Vitamin B Complex/Minerals [Stress B with Zinc Tablet] 1 each PO DAILY Ferrous Sulfate [Iron] 325 mg PO DAILY B2/Vits A,C,E/Lut/Zeaxanth/Min [Icaps Tablet] 1 each PO DAILY Ascorbic Acid 500 mg [Vitamin C 500 MG] 500 mg PO DAILY Instructions: Malignant Hypertension (DC) Additional Instructions: [facility] SERVICE TO FOLLOW ON DISCHARGE. YOU MAY REACH THEM AT [phone].
[2019-05-23 17:32] VITALS: BP 147/64; PULSE 69; O2SAT 96
== END 2019-05-23 18:12 | disposition home or self-care (01) ==
LOC: ED 17:22 → OBSVTOIN 22:04 → UNDOADMIN 22:04 → INTOOBSV 22:04 → ICU 22:04 → MED SURG 05-23 07:15
PROVIDERS: ADMIT General Practice; ATTEND General Practice
DX: I16.9 Hypertensive crisis, unspecified (principal); N39.0 Urinary tract infection, site not specified; R53.1 Weakness; R41.0 Disorientation, unspecified; E11.9 Type 2 diabetes mellitus without complications; Z79.899 Other long term (current) drug therapy; Z86.73 Personal history of transient ischemic attack (TIA), and cerebral infarction without residual deficits
CPT/HCPCS: 36415; 70450; 80053; 81001; 82962; 83036; 85025; 85610; 93005; 93041; 93268; 94762; 96360; 96374; 96375; 96376; 97161; 99291; 99292; G0378; 36000; 94760; 99284; J0360; J2930; A9270-GY